=== PATIENT | female | born 1955 | race Caucasian/White ===

== ENCOUNTER 2017-12-30 07:47 | Day surgery (SDC) | payer OTHER ==
[2017-12-30] MEDS ORDERED: LIDOCAINE 4% SOLUTION 50 ML BTL (09:52)
[2017-12-30] MEDS ORDERED: MIDAZOLAM 1 MG/ML 2 ML INJ ×2 (10:51)
[2017-12-30] MEDS ORDERED: FENTAnyl 50 MCG/ML VIAL (10:51)
== END 2017-12-30 17:31 | disposition home or self-care (01) ==
LOC: GIL 07:47
DX: Z12.11 Encounter for screening for malignant neoplasm of colon (principal); K21.0 Gastro-esophageal reflux disease with esophagitis; K57.90 Diverticulosis of intestine, part unspecified, without perforation or abscess without bleeding; K64.4 Residual hemorrhoidal skin tags; I10 Essential (primary) hypertension; K44.9 Diaphragmatic hernia without obstruction or gangrene
CPT/HCPCS: 43239; 88305; 88312; 88313